=== PATIENT | female | born 1945 | race Caucasian/White ===

== ENCOUNTER → 2021-01-23 | Outpatient (CLI) | payer MEDICARE | LOC: CT 06:51 | DX: E11.65 Type 2 diabetes mellitus with hyperglycemia (principal); K57.30 Diverticulosis of large intestine without perforation or abscess without bleeding; R10.9 Unspecified abdominal pain; R19.00 Intra-abdominal and pelvic swelling, mass and lump, unspecified site | CPT/HCPCS: Q9965 ==

== ENCOUNTER → 2021-01-29 | Outpatient (CLI) | payer MEDICARE | LOC: KOH-I 08:31 | DX: R19.00 Intra-abdominal and pelvic swelling, mass and lump, unspecified site (principal); R93.5 Abnormal findings on diagnostic imaging of other abdominal regions, including retroperitoneum; R10.9 Unspecified abdominal pain | CPT/HCPCS: 74181 ==

== ENCOUNTER → 2021-06-30 | Outpatient (CLI) | payer MEDICARE | LOC: HEART 5 08:09 | DX: R07.89 Other chest pain (principal); I27.20 Pulmonary hypertension, unspecified; I08.3 Combined rheumatic disorders of mitral, aortic and tricuspid valves | CPT/HCPCS: 78452; 93306; A9502; J2785 ==